=== PATIENT | male | born 1965 | race Caucasian/White ===

== ENCOUNTER 2019-04-03 17:22 | Emergency (ER) | payer BC ==
[~2019-04-03] VITALS: Ht 175.3 cm; Wt 79.4 kg
[2019-04-03] MEDS ORDERED: SERTRALINE20 MG/1 ML (17:32)
[2019-04-03] MEDS ORDERED: CRESTOR20 MG (17:32)
== END 2019-04-03 19:18 | disposition home or self-care (01) ==
LOC: ER 17:22
DX: S93.491A Sprain of other ligament of right ankle, initial encounter (principal); X50.0XXA Overexertion from strenuous movement or load, initial encounter; Y93.73 Activity, racquet and hand sports; Y92.018 Other place in single-family (private) house as the place of occurrence of the external cause; Y99.8 Other external cause status